=== PATIENT | female | born 1990 | race Caucasian/White ===

== ENCOUNTER 2019-10-11 15:00 | Emergency (ER) | payer MEDICAID ==
[~2019-10-11] VITALS: Ht 162.6 cm; Wt 68.0 kg
[2019-10-11 15:08] VITALS: BP 140/98; Ht 162.6 cm; Wt 68.0 kg
== END 2019-10-11 16:08 | disposition home or self-care (01) ==
LOC: ED 15:00
DX: F41.9 Anxiety disorder, unspecified (principal)